=== PATIENT | female | born 2000 | race Caucasian/White ===

== ENCOUNTER 2021-12-05 21:39 | Emergency (ER) | payer MEDICAID ==
[~2021-12-05] VITALS: Ht 167.6 cm; Wt 79.4 kg
--- NOTE | 2021-12-05 22:16 | NUR ---
BOILER MECHANIC AT PT'S BEDSIDE
--- NOTE | 2021-12-05 22:21 | NUR ---
COVID ANTIGEN SWAB COLLECTED AND SENT TO LAB
[2021-12-05] MEDS ORDERED: IBUPROFEN 600 MG TABLET ONE (22:54)
[2021-12-05] MEDS ORDERED: IBUPROFEN 600 MG TABLET PO ONE (23:00)
[2021-12-05] MEDS ORDERED: OSEL75CA PO (23:25)
[2021-12-05] MEDS ORDERED: IBUP-1955 PO (23:25)
[2021-12-05] MEDS ORDERED: DEXAMETHASONE SOD PHOSPHATE 10 MG/ML VIAL ONE (23:26)
--- NOTE | 2021-12-05 23:30 | NUR ---
Patient discharged to home in stable condition. Written and verbal after care instructions given. Patient verbalizes understanding of instruction.
[2021-12-05 23:31] VITALS: BP 119/80
== END 2021-12-05 23:32 | disposition home or self-care (01) ==
LOC: ER 21:43
DX: R05.9 Cough, unspecified (principal); J10.1 Influenza due to other identified influenza virus with other respiratory manifestations; Z79.899 Other long term (current) drug therapy
CPT/HCPCS: 71045; 87804; 99284; J1100

== ENCOUNTER 2022-11-26 13:47 | Emergency (ER) | payer MEDICAID ==
[~2022-11-26] VITALS: Ht 167.6 cm; Wt 72.6 kg
[~2022-11-26 13:47] MED LIST: IBUP-1955 PO; OSEL75CA PO
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
[2022-11-26] MEDS ORDERED: FLUORESCEIN SODIUM OPHTH 1 EA STRIP ONE (14:00)
[2022-11-26] MEDS ORDERED: CIPR5DRO RIGHTEYE (14:16)
--- NOTE | 2022-11-26 14:21 | NUR ---
Patient discharged to home in stable condition. Written and verbal after care instructions given. Patient verbalizes understanding of instruction.
[2022-11-26 14:23] VITALS: BP 126/73
== END 2022-11-26 14:23 | disposition home or self-care (01) ==
LOC: ER 13:51
DX: H57.11 Ocular pain, right eye (principal); Z79.899 Other long term (current) drug therapy